=== PATIENT | male | born 1995 | race African-American/Black ===

== ENCOUNTER 2018-08-06 21:45 | Emergency (ER) | payer BC ==
[~2018-08-06] VITALS: Ht 177.8 cm; Wt 79.4 kg
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
--- NOTE | 2018-08-06 22:45 | NUR ---
Pt. taken off unit for CT
--- NOTE | 2018-08-06 23:56 | NUR ---
Pt. up and ambulating in hallway, steady gait, NAD
[2018-08-07] MEDS ORDERED: IBUPROFEN 600 MG TABLET ONE (00:15)
[2018-08-07] MEDS ORDERED: IBUPROFEN 600 MG TABLET PO ONE (00:15)
--- NOTE | 2018-08-07 00:23 | NUR ---
Patient discharged to home in stable conditon. Written and verbal after care instructions given. Patient verbalizes understanding of instructions. Pt. d/c w/ prescription per MD order, d/c papers signed, all belongings w/ pt., ID band removed, left in private vehicle accompanied by female subcontracts manager, instructed not to drive, NAD
== END 2018-08-07 00:50 | disposition home or self-care (01) ==
LOC: ER 21:48
DX: S06.0X0A Concussion without loss of consciousness, initial encounter (principal); H02.846 Edema of left eye, unspecified eyelid; M54.2 Cervicalgia; J45.909 Unspecified asthma, uncomplicated; Z90.89 Acquired absence of other organs; V49.9XXA Car occupant (driver) (passenger) injured in unspecified traffic accident, initial encounter; Y93.89 Activity, other specified; Y92.89 Other specified places as the place of occurrence of the external cause; Y99.8 Other external cause status
CPT/HCPCS: 70450; 70486; 72125; A4663